=== PATIENT | male | born 1980 | race Caucasian/White ===

== ENCOUNTER 2021-02-16 01:29 | Observation (INO) | payer OTHER, SELFPAY ==
[2021-02-16] MEDS ORDERED: Boostrix 0.5 ML (Tdap) VIAL ONE (01:36)
[2021-02-16 01:49] LABS: #Basophils 0.1 thou/uL (0.0-0.2); #Eosinphils 0.2 thou/uL (0.0-0.7); #Lymphocytes 2.1 thou/uL (1.20-3.40); #Monocytes 0.4 thou/uL (0.11-0.59); #Neutrophils 5.2 thou/uL (1.40-6.50); %Basophils 0.9 % (0.0-1.0); %Lymphocytes 26.1 % (21.0-51.0); %Monocytes 5.1 % (0.0-10.0); %Neutrophils 65.9 % (42.0-75.0); Mean Corpuscular HGB CONC 34.5 g/dL (32.0-36.0); Mean Corpuscular Hemoglobin 33.9 pg (27.0-31.0); Mean Corpuscular Volume 98.5 fL (78.0-98.0); Mean Platelet Volume 6.7 fL (7.4-10.4); Platelet Count 321 thou/uL (130-400); RBC Distribution Width 12.7 % (11.5-14.5); Red Blood Cell (RBC) Count 4.13 mill/uL (4.70-6.10); White Blood Cell (WBC) Count 7.9 thou/uL (4.8-10.8)
[2021-02-16 02:03] LABS: ALT (SGPT) 19 U/L (8-55); AST (SGOT) 44 U/L (5-34); Albumin 4.1 g/dL (3.5-5.0); Alkaline Phosphatase 53 U/L (40-110); Anion Gap 17 mmol/L (10-20); BUN (Urea Nitrogen) 8 mg/dL (8.9-20.6); Bilirubin, Total 0.4 mg/dL (0.2-1.2); Calc. Creatinine Clearance 0 mL/min (70-130); Calcium 8.4 mg/dL (7.8-10.44); Carbon Dioxide 22 mmol/L (22-29); Chloride 107 mmol/L (98-107); Globulin 2.8 g/dL (2.4-3.5); Glucose 115 mg/dL (70-105); Potassium 3.7 mmol/L (3.5-5.1); Protein, Total 6.9 g/dL (6.0-8.3); Sodium 142 mmol/L (136-145)
[2021-02-16] MEDS ORDERED: Lidocaine 1% PF 5 ML VIAL ONE (03:16)
[2021-02-16] MEDS ORDERED: Lorazepam 2 MG/ML VIAL ONE (03:16)
[2021-02-16] MEDS ORDERED: hydrALAZINE 20 MG/ML VIAL SLOW IVP PRN (05:38)
[2021-02-16] MEDS ORDERED: Dextrose 50% Abboject 50 ML SYRINGE SLOW IVP PRN (05:38)
[2021-02-16] MEDS ORDERED: Cyclobenzaprine 10 MG TAB PO PRN (05:38)
[2021-02-16] MEDS ORDERED: Ondansetron PF 4 MG/2 ML Vial IVP PRN (05:38)
[2021-02-16] MEDS ORDERED: traMADol HCl 50 MG TAB PO PRN (05:38)
[2021-02-16] MEDS ORDERED: Promethazine HCl 25 MG/ML VIAL IM PRN (05:38)
[2021-02-16] MEDS ORDERED: Ondansetron ODT 4 MG TAB PO PRN (05:38)
[2021-02-16] MEDS ORDERED: Dextrose 5% in Water 1,000 ML IV PRN (05:38)
[2021-02-16] MEDS: Acetaminophen 500 MG TAB PO SCH ×4 (06:51→23:03)
[2021-02-16] MEDS: Ibuprofen 200 MG TAB PO SCH ×3 (06:52→23:03)
[2021-02-16] MEDS: Sodium Chloride 0.9% 1,000 ML IV SCH ×2 (06:53→14:06)
[2021-02-16 07:21] VITALS: BMI 24.6
[2021-02-16] MEDS: Famotidine 20 MG TAB PO SCH ×2 (08:16→23:03)
[2021-02-16] MEDS ORDERED: Iopamidol-370 76% 500 ML 1 ML ONE (12:33)
[2021-02-16] MEDS ORDERED: Iopamidol 370 76% 50 ML VIAL FS ONE (12:33)
[2021-02-16 12:57] LABS: SARS-CoV-2 PCR by NAA Not Detected (NotDetected)
[2021-02-16 17:21] LABS: Amphetamine Not Detected (NotDetected); Barbiturates Screen Not Detected (NotDetected); Benzodiazepine Screen Detected (NotDetected); Cocaine Metabolite Screen Not Detected (NotDetected); Medtox Control Line Valid? VALID (VALID); Medtox Reader # READER 4; Methadone Not Detected (NotDetected); Methamphetamine Not Detected (NotDetected); Opiate Screen Not Detected (NotDetected); Oxycodone Screen Not Detected (NotDetected); Phencyclidine (PCP) Not Detected (NotDetected); THC/Cannabinoid Screen Detected (NotDetected); Tricyclic Screen Not Detected (NotDetected)
[2021-02-16] MEDS: traMADol HCl 50 MG TAB PO PRN ×2 (17:31→23:07)
[2021-02-17] MEDS: Acetaminophen 500 MG TAB PO SCH ×2 (06:07→11:04)
[2021-02-17] MEDS: Ibuprofen 200 MG TAB PO SCH (06:07)
[2021-02-17] MEDS: Famotidine 20 MG TAB PO SCH (08:01)
[2021-02-17] MEDS: traMADol HCl 50 MG TAB PO PRN (08:01)
[2021-02-17 11:49] VITALS: BP 130/75; TEMP 98.2
== END 2021-02-17 14:18 | disposition home or self-care (01) ==
LOC: ERS 01:29 → INTOOBSV 03:23 → SURG A 03:23
PROVIDERS: ADMIT Surgery; ATTEND Surgery
DX: S27.0XXA Traumatic pneumothorax, initial encounter (principal); S22.32XA Fracture of one rib, left side, initial encounter for closed fracture; S12.040A Displaced lateral mass fracture of first cervical vertebra, initial encounter for closed fracture; S12.600A Unspecified displaced fracture of seventh cervical vertebra, initial encounter for closed fracture; S01.01XA Laceration without foreign body of scalp, initial encounter; F10.129 Alcohol abuse with intoxication, unspecified; Y90.7 Blood alcohol level of 200-239 mg/100 ml; V43.52XA Car driver injured in collision with other type car in traffic accident, initial encounter; Z20.822 Contact with and (suspected) exposure to COVID-19
CPT/HCPCS: 12002; 36415; 70450; 70486; 70498; 71045; 71260; 72125; 74177; 80053; 80306; 80307; 85025; 87635; 90471; 90715; 96365; 96372; 96375; G0378; G0390; J0690; J2060; Q9967; U0003; U0005